=== PATIENT | male | born 1975 | race American Indian/Alaskan Native ===

== ENCOUNTER 2017-04-01 02:19 | Emergency (ER) | payer OTHER ==
--- NOTE | 2017-04-01 03:34 | XRay Report ---
FINAL REPORT PROCEDURE: XR KNEE 3V LT TECHNIQUE: LEFT knee radiographs, AP, lateral and oblique views. CPT 09361 HISTORY: impact, pain, send for report COMPARISON: No prior studies are available for comparison. FINDINGS: Fracture (s) and/or Dislocation(s): None . Alignment: Normal . Joint space(s): Normal . Soft tissues: Normal . Bone mineralization: Normal . Foreign bodies: None . IMPRESSION: There is no evidence of an acute fracture or dislocation..
[2017-04-01] MEDS ORDERED: MOTRIN PO ONE (05:51)
--- NOTE | 2017-04-01 06:29 | Emergency Department Report ---
ED Lower Extremity HPI - General Chief Complaint: Extremity Injury, Lower Stated Complaint: LT KNEE BLISTER W/NUMBNESS Time Seen by Provider: 04/01/17 03:30 Source: patient Mode of arrival: Ambulatory Limitations: No Limitations - History of Present Illness Initial Comments: 42M p/w c/o redness and boil to left anterior knee region ~ 5 days. denies any fevers or chills. states he may have been bitten by spider. Visible area or red skin below left patellar region. pt denies any trouble flexing or extending knee joint MD Complaint: knee injury Onset/Timin -: days(s) Injury: Knee: Left (left anterior knee region) Severity: moderate Severity scale (0 -10): 5 Worsens With: palpation Associated Symptoms: ambulatory - Related Data Previous Rx's Medication Instructions Recorded Last Taken Type Cephalexin [Keflex] 500 mg PO Q12HR #14 cap 04/01/17 Unknown Rx Ibuprofen [Motrin] 600 mg PO Q8H PRN #15 tablet 04/01/17 Unknown Rx Sulfamethoxazole/Trimethoprim 1 each PO BID #14 tablet 04/01/17 Unknown Rx [Bactrim DS TAB] Allergies Allergy/AdvReac Type Severity Reaction Status Date / Time No Known Allergies Allergy Verified 04/01/17 02:55 ED Review of Systems ROS: Stated complaint: LT KNEE BLISTER W/NUMBNESS Other details as noted in HPI Constitutional: denies: chills, fever Eyes: denies: eye pain, eye discharge, vision change ENT: denies: ear pain, throat pain Respiratory: denies: cough, shortness of breath, wheezing Cardiovascular: denies: chest pain, palpitations Endocrine: no symptoms reported Gastrointestinal: denies: abdominal pain, nausea, diarrhea Genitourinary: denies: urgency, dysuria Musculoskeletal: denies: back pain, joint swelling, arthralgia Skin: denies: rash, lesions Neurological: denies: headache, weakness, paresthesias Psychiatric: denies: anxiety, depression Hematological/Lymphatic: denies: easy bleeding, easy bruising ED Past Medical Hx - Past Medical History Previous Medical History?: No - Surgical History Past Surgical History?: No - Social History Smoking Status: Current Every Day Smoker Substance Use Type: Alcohol - Medications Home Medications: Home Medications Medication Instructions Recorded Confirmed Last Taken Type Cephalexin [Keflex] 500 mg PO Q12HR #14 cap 04/01/17 Unknown Rx Ibuprofen [Motrin] 600 mg PO Q8H PRN #15 tablet 04/01/17 Unknown Rx Sulfamethoxazole/Trimethoprim 1 each PO BID #14 tablet 04/01/17 Unknown Rx [Bactrim DS TAB] ED Physical Exam - General Limitations: No Limitations General appearance: alert, in no apparent distress - Head Head exam: Present: atraumatic, normocephalic - Eye Eye exam: Present: normal appearance, PERRL, EOMI - ENT ENT exam: Present: mucous membranes moist - Neck Neck exam: Present: normal inspection - Respiratory Respiratory exam: Present: normal lung sounds bilaterally. Absent: respiratory distress - Cardiovascular Cardiovascular Exam: Present: regular rate, normal rhythm. Absent: systolic murmur, diastolic murmur, rubs, gallop - GI/Abdominal GI/Abdominal exam: Present: soft, normal bowel sounds - Rectal Rectal exam: Present: deferred - Extremities Exam Extremities exam: Present: normal inspection - Expanded Lower Extremity Exam Left Hip exam: Present: normal inspection, full ROM Upper Leg exam: Present: normal inspection, full ROM Knee exam: Present: normal inspection, tenderness (mild erythema and 2-3 cm abcess overlying left anterior patellar region on surface of skin, mild surrounding erythem ~5 cm in diamter, i marked th broders) Lower Leg exam: Present: normal inspection, full ROM Ankle exam: Present: normal inspection, full ROM Foot/Toe exam: Present: normal inspection, full ROM Neuro vascular tendon exam: Present: no vascular compromise (distal pulses intact, distal light touch, blunt/sharp sensation , 2 point discrimiation, proprioception intact) Gait: Positive: observed and normal 1 - small abscess here - Back Exam Back exam: Present: normal inspection - Neurological Exam Neurological exam: Present: alert, oriented X3, CN II-XII intact, normal gait - Psychiatric Psychiatric exam: Present: normal affect, normal mood - Skin Skin exam: Present: warm, dry, intact, normal color. Absent: rash ED Course Vital Signs 04/01/17 04/01/17 04/01/17 02:57 06:58 07:10 Temperature 98.2 F Pulse Rate 92 H 88 Respiratory 18 16 16 Rate Blood Pressure 139/95 134/89 [Right] O2 Sat by Pulse 100 98 Oximetry - I & D Left Anterior Knee Type of Procedure: Simple Site: left anteriro knee region below patella Blade Size: 11 I & D Procedure: betadine prep Progress: area infiltrated with 2 ccs lidocaine with epi. small 0.5cm incision made over central abscess region, mild purulent drainage 2ccs, wound culture sent, minimal bleeding, tolerated well. gauze placed over site ED Lower Extremity MDM - Medical Decision Making A/P: Abscess overlying skin left knee 1-abscess incised and drained, culture sent 2-Motrin when necessary, Bactrim and Keflex twice a day 7 days 3-borders of cellulitis marked 4-x-ray unremarkable 5- I advised patient to return to the ED if abscess re-accumulates if cellulitis spreads beyond marked borders if he experiences fevers and chills or difficulty flexing or extending the knee, patient has none of those symptoms currently. Critical care attestation.: If time is entered above; I have spent that time in minutes in the direct care of this critically ill patient, excluding procedure time. ED Disposition Clinical Impression: Abscess of left leg Disposition: DC-01 TO HOME OR SELFCARE Is pt being admited?: No Does the pt Need Aspirin: No Condition: Stable Instructions: Abscess Incision and Drainage (ED), Abscess (ED) Prescriptions: Cephalexin [Keflex] 500 mg PO Q12HR #14 cap Ibuprofen [Motrin] 600 mg PO Q8H PRN #15 tablet PRN Reason: Pain Sulfamethoxazole/Trimethoprim [Bactrim DS TAB] 1 each PO BID #14 tablet Referrals: [facility] [Outside] - 3-5 Days Forms: Accompanied Note, Work/School Release Form(ED) Time of Disposition: 07:12
[2017-04-01 08:02] VITALS: BP 134/89
== END 2017-04-01 07:25 | disposition home or self-care (01) ==
LOC: ED 02:19
DX: L02.416 Cutaneous abscess of left lower limb (principal); F17.200 Nicotine dependence, unspecified, uncomplicated
CPT/HCPCS: 87076; 87116; 87186